=== PATIENT | female | born 1945 | race Two or more races ===

== ENCOUNTER 2020-02-27 20:27 | Inpatient (IN) | payer MEDICAID, OTHER ==
[~2020-02-27] VITALS: Ht 152.4 cm; Wt 45.8 kg
--- NOTE | 2020-02-27 20:30 | NUR ---
PT AAOX4. EQUATORIAL GUINEAN SPEAKING. BIBRA 39 FROM HOME C/O L SIDED CP RADIATING TO THE L ARM X 2 DAYS. PER RA FAMILY HAD AN ARGUMENT AT HOME AND PT STARTED TO C/P L SIDED CP, WHICH THEN STATED SHE HAD THE CP X2 DAYS. RR EVEN AND UNLABORED, PT PLACED IN BED 9 ON TRANSPORT CONDUCTOR, AND PULSE OX. EMT AT BEDSIDE FOR EKG. AWAITING MD FOR EVAL AND ORDERS. WILL CONTINUE TO MONITOR.
--- NOTE | 2020-02-27 20:42 | NUR ---
BLOOD COLLECTED AND SENT TO LAB
--- NOTE | 2020-02-27 20:43 | NUR ---
EKG AT BEDSIDE
--- NOTE | 2020-02-27 21:07 | NUR ---
PT'S DAUGHTER IN LAW, COLTON [phone]
--- NOTE | 2020-02-27 21:10 | NUR ---
COVID SWAB SENT TO LAB
[2020-02-27 21:21] LABS: BASOPHILS # (AUTO) 0.1 /CMM (0.0-0.2); BASOPHILS % (AUTO) 1.3 % (0.0-2.0); EOSINOPHILS % (AUTO) 1.4 % (0.0-6.0); HEMATOCRIT 42 % (33-45); HEMOGLOBIN 14.1 g/dL (11.5-14.8); LYMPHOCYTES # (AUTO) 1.8 /CMM (0.8-4.8); LYMPHOCYTES % (AUTO) 39.8 % (20.0-44.0); MEAN CORPUSCULAR HGB CONC 34 g/dl (31.0-36.0); MEAN CORPUSCULAR VOLUME 89 fL (82-100); MONOCYTES # (AUTO) 0.5 /CMM (0.1-1.30); MONOCYTES % (AUTO) 10.6 % (2.0-12.0); NEUTROPHILS # (AUTO) 2.1 /CMM (1.8-8.9); NEUTROPHILS % (AUTO) 46.9 % (43.0-81.0); PLATELET COUNT (AUTO) 203 /CMM (150-450); RED BLOOD CELL COUNT(AUTO) 4.71 MIL/uL (4.0-5.2); WHITE BLOOD COUNT (AUTO) 4.5 K/uL (4.3-11.0)
[2020-02-27 21:30] LABS: CARBON DIOXIDE 23 mmol/L (21-32); CHLORIDE 107 mmol/L (98-107); CREATININE 0.8 mg/dL (0.6-1.3); GLUCOSE 110 mg/dL (74-106); POTASSIUM 3.3 mmol/L (3.5-5.1); SODIUM SERUM 142 mmol/L (136-145); UREA NITROGEN, BLOOD 15 mg/dL (7-18)
[2020-02-27 21:44] LABS: B-TYPE NATRIURETIC PEPTIDE 133 PG/ML (0-125)
[2020-02-27] MEDS ORDERED: CEFTRIAXONE 1GM BAG (ER ONLY) 1 GM/50 ML PIGGYBACK IV ONE (22:00)
[2020-02-27] MEDS ORDERED: AZITHROMYCIN 500 MG in IV D5W 250 ML IV ONE (22:00)
[2020-02-27] MEDS ORDERED: CEFTRIAXONE 1 G VIAL ONE (22:12)
[2020-02-27] MEDS ORDERED: AZITHROMYCIN 500 MG VIAL ONE (22:42)
[2020-02-27 22:45] VITALS: BP 159/78
[2020-02-27 23:00] VITALS: BP 159/78
[2020-02-27] MEDS ORDERED: ACETAMINOPHEN 325 MG TABLET PO PRN (23:00)
[2020-02-27] MEDS ORDERED: MAGNESIUM HYDROXIDE 30 ML UDC PO PRN (23:00)
[2020-02-27] MEDS ORDERED: POTASSIUM CHLORIDE 10 MEQ TABLET.SA PO ONE (23:00)
[2020-02-27] MEDS ORDERED: Z GUARD REMEDY 2 OZ OINT TP PRN (23:00)
[2020-02-27] MEDS ORDERED: HYDROCODONE/APAP 5/325MG TABLET PO PRN (23:00)
[2020-02-27] MEDS ORDERED: MAG HYDROX/AL HYDROX/SIMETH 30 ML UDC PO PRN (23:00)
[2020-02-27] MEDS ORDERED: ZOLPIDEM TARTRATE 5 MG TABLET PO PRN (23:00)
[2020-02-27] MEDS ORDERED: ONDANSETRON HCL/PF 4 MG/2 ML VIAL IVP PRN (23:00)
--- NOTE | 2020-02-27 23:03 | NUR ---
PT TRANSFERRED TO ROOM VIA ACLS PROTOCOL
--- NOTE | 2020-02-27 23:05 | NUR ---
RN NOTES RECEIVED PT. FROM ER WITH DX. OF CHEST PAIN, A/OX4, AMBULATE WITH ASSIST , BULGARIAN SPEAKING, SR ON TELE MONITOR HR-83, SKIN ASSESSMENT DONE, ADMISSION INSTRUCTION WAS RENDERED, CALL LIGHT WITHIN REACH, SIDERAILSUPX2, CONTINUE TO MONITOR
[2020-02-28 03:20] LABS: BASOPHILS % (AUTO) 0.8 % (0.0-2.0); EOSINOPHILS % (AUTO) 0.7 % (0.0-6.0); HEMATOCRIT 41 % (33-45); LYMPHOCYTES # (AUTO) 1.5 /CMM (0.8-4.8); MEAN CORPUSCULAR HGB CONC 34 g/dl (31.0-36.0); MEAN CORPUSCULAR VOLUME 89 fL (82-100); MONOCYTES # (AUTO) 0.4 /CMM (0.1-1.30); MONOCYTES % (AUTO) 9.1 % (2.0-12.0); NEUTROPHILS # (AUTO) 2.4 /CMM (1.8-8.9); NEUTROPHILS % (AUTO) 54.4 % (43.0-81.0); PLATELET COUNT (AUTO) 190 /CMM (150-450); RED BLOOD CELL COUNT(AUTO) 4.67 MIL/uL (4.0-5.2); WHITE BLOOD COUNT (AUTO) 4.4 K/uL (4.3-11.0)
[2020-02-28 03:36] LABS: CALCIUM, SERUM 8.4 mg/dL (8.5-10.1); CREATININE 0.7 mg/dL (0.6-1.3); PHOSPHORUS 3.6 mg/dL (2.5-4.9); POTASSIUM 4.3 mmol/L (3.5-5.1)
[2020-02-28 04:00] VITALS: BP 136/77
--- NOTE | 2020-02-28 06:50 | NUR ---
RN NOTES AWAKE, DENIES PAIN, NO SOB, MORNING CARE RENDERED, CALL LIGHT WITHIN REACH, SIDERIALSUPX2, PT. NEEDS ATTENDED
--- NOTE | 2020-02-28 07:30 | NUR ---
TELE/RN OPENING NOTES Received patient in bed, A&O x 4, grenadian speaking. Denies any pain/discomfort at this time. Breathing even and non-labored on 2L oxygen via NC, no SOB noted. No cardiac distress noted, on tele monitor reading SR 70s. IV access noted on R AC #18g, patent and intact, and flushing well. Bed locked to its lowest position, side rails x 2 up, call light in hand. Will continue with current medical management.
[2020-02-28] MEDS ORDERED: VALS80TA2 PO (08:32)
[2020-02-28 08:49] VITALS: BP 154/77
--- NOTE | 2020-02-28 10:00 | NUR ---
MS/RN NOTE Obtained patient's consent for [facility].
--- NOTE | 2020-02-28 16:00 | NUR ---
MS/RN NOTE Patient picked up @1600 for [facility].
[2020-02-28] MEDS ORDERED: IV NS 0.9% 250 ML IV ONE (16:08)
[2020-02-28] MEDS ORDERED: CT SWABBABLE VALVE TRANS SET 1 EA INFUS.SET MC ONE (16:08)
[2020-02-28] MEDS ORDERED: IOHEXOL-350 100 ML VIAL IV ONE (16:08)
[2020-02-28] MEDS ORDERED: NITROGLYCERIN 0.4 MG/TAB BOTTLE ONE (16:21)
[2020-02-28] MEDS ORDERED: METOPROLOL TARTRATE INJ 5 MG/5 ML AMPUL ONE ×2 (16:21→16:41)
[2020-02-28] MEDS: METOPROLOL TARTRATE INJ 5 MG/5 ML AMPUL IVP PRN ×3 (16:25→16:35)
[2020-02-28] MEDS ORDERED: NITROGLYCERIN 0.4 MG/TAB BOTTLE SL ONE (16:30)
--- NOTE | 2020-02-28 17:30 | NUR ---
MS/RN NOTE Patient back from [facility]. VSS, afebrile, no SOB noted, denies any pain/discomfort. Notified Dr. Bianchi, ordered to put patient back on diet: cardiac diet. Order carried out. Will continue to monitor.
[2020-02-28] MEDS ORDERED: PNEUMOCOCCAL 23-VAL P-SAC VAC 0.5 ML VIAL SQ ONE (18:00)
[2020-02-28] MEDS ORDERED: INFLUENZA VACCINE 2020-21 0.5 ML DISP.SYRIN IM ONE (18:00)
--- NOTE | 2020-02-28 18:30 | NUR ---
MS/RN NOTE Administered pneumococcal vaccine on Left arm (LOT # [id number], EXPDATE 01/14/21) and influenza vaccine on Right arm (LOT #[id number], EXPDATE 10/11/20).
--- NOTE | 2020-02-28 19:30 | NUR ---
MS/RN OPENING NOTES Received patient resting in bed, A&O x 4, Yemeni speaking. Denies any pain/discomfort at this time. Breathing even and non-labored on 2L oxygen via NC, no SOB noted. No cardiac distress noted. IV access noted on R AC #18g, patent and intact and flushing well. Bed locked to its lowest position, side rails x 2 up, call light in hand. Will continue to monitor for any change of condition.
--- NOTE | 2020-02-28 19:30 | NUR ---
MS/RN CLOSING NOTES Patient in bed, A&O x 4, all needs met and attended to. Denies any pain/discomfort at this time. Breathing even and non-labored on 2L oxygen via NC, no SOB noted. No cardiac distress noted. IV access noted on R AC #18g, patent and intact, and flushing well. Sensation from all peripheral extremities intact. Fall precautions maintained. Will endorse to manager shift nurse.
[2020-02-28 20:00] VITALS: BP 140/73
[2020-02-28 20:09] VITALS: BP 140/73
[2020-02-28] MEDS ORDERED: CEFTRIAXONE 1 G in IV D5W 50 ML IV SCH (23:00)
[2020-02-28] MEDS ORDERED: AZITHROMYCIN 250 MG TABLET PO SCH (23:00)
--- NOTE | 2020-02-29 07:03 | NUR ---
MS RN CLOSING NOTE PATIENT SLEPT WELL AT NIGHT. NO ACUTE CHANGES NOTED. IN STABLE CONDITION. NO C/O CHEST PAIN VERBALIZED. COOPERATIVE WITH CARE & MEDICINE. WILL ENDORSE TO AM RN FOR JENNIFER.
[2020-02-29 07:38] LABS: BASOPHILS % (AUTO) 0.5 % (0.0-2.0); EOSINOPHILS % (AUTO) 0.6 % (0.0-6.0); HEMATOCRIT 42 % (33-45); HEMOGLOBIN 14.1 g/dL (11.5-14.8); LYMPHOCYTES # (AUTO) 1.2 /CMM (0.8-4.8); MEAN CORPUSCULAR HGB CONC 34 g/dl (31.0-36.0); MEAN CORPUSCULAR VOLUME 89 fL (82-100); MONOCYTES # (AUTO) 0.5 /CMM (0.1-1.30); MONOCYTES % (AUTO) 8.3 % (2.0-12.0); NEUTROPHILS # (AUTO) 4.3 /CMM (1.8-8.9); NEUTROPHILS % (AUTO) 70.6 % (43.0-81.0); PLATELET COUNT (AUTO) 183 /CMM (150-450); RED BLOOD CELL COUNT(AUTO) 4.69 MIL/uL (4.0-5.2); WHITE BLOOD COUNT (AUTO) 6.1 K/uL (4.3-11.0)
[2020-02-29 07:51] LABS: CALCIUM, SERUM 8.4 mg/dL (8.5-10.1); CREATININE 0.6 mg/dL (0.6-1.3); MAGNESIUM 2.2 mg/dL (1.8-2.4); PHOSPHORUS 4.5 mg/dL (2.5-4.9)
[2020-02-29 08:00] VITALS: BP 132/74
--- NOTE | 2020-02-29 08:00 | NUR ---
RECEIVED PT. THIS AM ALERT AND ORIENTED X4.WELSH SPEAKING.COOPERATIVE.NO COMPLAINTS.
--- NOTE | 2020-02-29 13:30 | NUR ---
RECEIVED ORDER FROM RONNIE FOR DC TODAY.VS STABLE.CALL OUT TO FAMILY SEVERAL TIMES INFO ON PT.AND STATUS GIVEN.
[2020-02-29 16:00] VITALS: BP 137/74
--- NOTE | 2020-02-29 16:55 | NUR ---
ALL PAPERS SIGNED. HEP LOCK OUT.PAPERS SENT WITH PT. PT. TAKEN TO LOBBY VIA W/C ACC. BY BERNICE.
== END 2020-02-29 17:00 | disposition home or self-care (01) | DRG 203 ==
LOC: ER 20:29 → TELE 22:21 → MED 02-28 11:06
PROVIDERS: ADMIT Family Medicine; ATTEND Internal Medicine
DX: R07.89 Other chest pain (principal); E87.6 Hypokalemia; I10 Essential (primary) hypertension; R73.9 Hyperglycemia, unspecified; I08.0 Rheumatic disorders of both mitral and aortic valves; R78.89 Finding of other specified substances, not normally found in blood
CPT/HCPCS: 36415; 71045-TC; 75574; 80048-TC; 80061-TC; 83735-TC; 83880; 84100-TC; 84484-TC; 85025-TC; 87081-TC; 90732; 93307-TC; C9803; G0378; J0456; J0696; J3490; J7050; J7060; Q2036; Q9967